=== PATIENT | male | born 1970 | race Caucasian/White ===

== ENCOUNTER 2017-04-16 16:47 | Emergency (ER) | payer MEDICAID ==
[~2017-04-16] VITALS: Ht 177.8 cm; Wt 68.0 kg
[2017-04-16 17:03] VITALS: BP 124/88
== END 2017-04-16 19:15 | disposition left against medical advice (07) ==
LOC: ER 16:55
DX: M54.2 Cervicalgia (principal); Z53.21 Procedure and treatment not carried out due to patient leaving prior to being seen by health care provider